=== PATIENT | female | born 2000 | race American Indian/Alaskan Native ===

== ENCOUNTER 2023-02-22 00:24 | Inpatient (IN) | payer OTHER ==
[~2023-02-22] VITALS: Ht 182.9 cm; Wt 142.9 kg
[~2023-02-22 00:24] MED LIST: FERROUS SULFAT325 MG PO; PRENATAL TABLE1 EAC1 PO
== END 2023-02-23 13:09 | disposition home or self-care (01) | DRG 798 ==
LOC: LDR 00:24 → OB/GYN 00:24
PROVIDERS: ADMIT Specialist; ATTEND Specialist
PROC: 0UB70ZZ Excision of Bilateral Fallopian Tubes, Open Approach (ICD-10-PCS; 2023-02-22)
PROC: 4A1HXCZ Monitoring of Products of Conception, Cardiac Rate, External Approach (ICD-10-PCS; 2023-02-22)
PROC: 10E0XZZ Delivery of Products of Conception, External Approach (ICD-10-PCS; principal; 2023-02-22 17:30)
DX: O80 Encounter for full-term uncomplicated delivery (principal); Z37.0 Single live birth; Z3A.39 39 weeks gestation of pregnancy; Z20.822 Contact with and (suspected) exposure to COVID-19; Z30.2 Encounter for sterilization